=== PATIENT | female | born 1960 | race Caucasian/White ===

== ENCOUNTER → 2017-11-21 | Day surgery (SDC) | payer OTHER ==
[~2017-11-21] VITALS: Ht 167.6 cm; Wt 70.3 kg
[~2017-11-21] MED LIST: AZELASTINE137 MCG/0. NS; BIOTIN1000 MCG PO; CALCIUM 500 +1 EAC5 PO; CALCIUM CITRAT250 MG PO; CENTRUM SILVER1 EAC4 PO; ESTRADIOL 1 MG T1 M1 PO; FISH OIL 1,001000 M2 PO; FLONASE 0.05%50 MCG NASAL; GLUCOSAMINE CH1 EAC2 PO; IBUPROFEN 200200 M1 PO; LEVSIN0.125 MG PO; PROTONIX40 M4 PO; PROVERA2.5 MG PO; VITAMIN B-12500 MCG PO; VITAMIN D1000 UNI1 PO; VITAMIN E400 UNIT PO; VITAMINC500 PO
--- NOTE | ~2017-11-21 | O ---
[facility] [place] [address] OPERATIVE REPORT Name: COLLEEN ROGERS Room #: REG [facility]..#: [id number] Admission: 11/21/17 Attend Phys: Kacey Marshall, Discharge: Date of : 62 Report #: [id number] THIS REPORT FOR: //name// CC: Leticia Marshall DATE OF SERVICE: 11/21/2017 PREOPERATIVE DIAGNOSIS: Left carpal tunnel syndrome. POSTOPERATIVE DIAGNOSIS: Left carpal tunnel syndrome. PROCEDURE PERFORMED: Left open carpal tunnel release. SURGEON: Kacey Marshall MD ANESTHESIA: Local MAC anesthesia. ESTIMATED BLOOD LOSS: Minimal. TOURNIQUET TIME: 11 minutes. COMPLICATIONS: None. CONDITION: Stable. DISPOSITION: Recovery room. INDICATIONS: The patient is a 57-year-old female with the above-mentioned diagnosis. She elects for operative treatment. The risks, benefits, alternatives and complications were discussed and included but were not limited to infection, damage to blood vessels or nerves, incomplete relief of her symptoms. Informed consent was obtained. The correct extremity was identified and labeled by myself after verbal confirmation of patient as well as visual confirmation and signed informed consent. DESCRIPTION OF PROCEDURE: The patient was brought back to the operating room and placed on the operating table in the supine position. She received preoperative antibiotics. Tourniquet was placed over padding on the patient's left upper extremity. The left upper extremity was sterilely prepped and draped in the usual fashion. A final timeout was taken to verify correct patient, operative procedure and operative site, all concurred. After adequate sedation was achieved, approximately 5 mL of a mixture of 0.25% Marcaine and 1% lidocaine was injected subcutaneously at the proposed incision site. The arm was elevated, exsanguinated, and tourniquet inflated. The entire procedure was done with the aid of 3.5 times loupe magnification. Next, a 2 cm incision was made [address] [address] OPERATIVE REPORT Name: COLLEEN ROGERS Room #: REG [facility].#: [id number] Admission: 11/21/17 Attend Phys: Kacey Marshall, Discharge: Date of : 62 Report #: [id number] over the carpal tunnel in line with the ring and long finger web space. Dissection was carried down through subcutaneous tissue with tenotomy scissors. In the mid portion of the incision, a 15 blade was used to incise the very thick transverse carpal ligament. The very thick transverse carpal ligament was transected proximally from the antebrachial fascia of the forearm, all the way through the fat in the palm. The nerve was evaluated and looked to be in good condition. The wound was thoroughly irrigated. The skin was closed with 4-0 nylon suture. Wound was dressed with Adaptic and sterile gauze. She was placed in a bulky dressing. All fingers were pink with brisk capillary refill at the conclusion of the case. After deflation of the tourniquet, all sponge and needle counts were correct. The patient was transferred to postoperative recovery room in stable condition. By: 1502 1550 Kacey Marshall MD /nt
[2017-11-21 09:51] VITALS: BP 107/67
[2017-11-21 12:18] VITALS: BP 107/67
== END | disposition home or self-care (01) ==
LOC: OR 06:31
DX: G56.02 Carpal tunnel syndrome, left upper limb (principal); K21.9 Gastro-esophageal reflux disease without esophagitis; Z98.890 Other specified postprocedural states
CPT/HCPCS: 50010; 50101; 50386; 56526; 57006; 57091; 62110; 62850; 70005

== ENCOUNTER 2018-12-15 05:42 | Day surgery (SDC) | payer OTHER ==
[~2018-12-15] VITALS: Ht 165.1 cm; Wt 69.4 kg
--- NOTE | ~2018-12-15 | O ---
[facility] [place] [address] OPERATIVE REPORT Name: COLLEEN ROGERS Room #: 150-1 [facility] M.R.#: [id number] Admission: 12/15/18 ������������������ Attend Phys: Kacey Marshall, Discharge: ������������������ Date of : 62 Report #: [id number] THIS REPORT FOR: //name// CC: Leticia Marshall DATE OF SERVICE: 12/15/2018 PREOPERATIVE DIAGNOSES: 1. Right de Quervain's tenosynovitis. 2. Right long finger trigger finger. 3. Left trigger thumb. POSTOPERATIVE DIAGNOSES: 1. Right de Quervain's tenosynovitis. 2. Right long finger trigger finger. 3. Left trigger thumb. PROCEDURE PERFORMED: 1. Right first dorsal compartment release. 2. Right long finger A1 gina release. 3. Left trigger thumb A1 gina release. SURGEON: Kacey Marshall MD. ANESTHESIA: Local MAC anesthesia. ESTIMATED BLOOD LOSS: Minimal. TOURNIQUET TIME: 19 minutes on the right and 6 minutes on the left. COMPLICATIONS: None. CONDITION: Stable. DISPOSITION: Recovery room. INDICATIONS: The patient is a 58-year-old female with the above-mentioned diagnosis. She elects for operative treatment. The risks, benefits, alternatives and complications were discussed including but not limited to infection, damage to vessels or nerves, incomplete relief of her symptoms. Informed consent was obtained. The correct extremity was identified and labeled by myself after verbal confirmation of the patient as well as visual confirmation and signed informed consent. DESCRIPTION OF PROCEDURE: The patient was brought back to the operating room [facility] [address] [place] [address] OPERATIVE REPORT Name: COLLEEN ROGERS Room #: 150-1 [facility] M.R.#: [id number] Admission: 12/15/18 ������������������ Attend Phys: Kacey Marshall, Discharge: ������������������ Date of : 62 Report #: [id number] and placed on the operative room table in the supine position. She received preoperative antibiotics. Tourniquet was placed over padding on the patient's both upper extremities with her extremities were sterilely prepped and draped in usual fashion. Final timeout was taken to verify correct patient, operative procedure, operative site, all concurred. After adequate sedation was achieved, a total of 10 mL of a mixture of 0.25% Marcaine and 1% lidocaine was injected in divided doses to the proposed surgical incisions. After adequate anesthesia was obtained, the attention was placed to the left. The left upper extremity was elevated, exsanguinated and the tourniquet inflated. Next, a 1.5 cm transverse incision was made at the level of the A1 gina. Dissection was carried down through subcutaneous tissue with tenotomy scissors all the way to the A1 gina. The A1 gina was easily identified and incised. It was noted to be significantly thickened. The thumb was taken through passive range of motion. Due to the sedation, she was unable to comply with an active range of motion. There was no locking or clicking. The tendon glided smoothly. The wound was thoroughly irrigated. Skin was closed with 4-0 nylon suture. Wound was dressed with Adaptic and sterile gauze. She was placed in a bulky dressing. All fingers were pink with brisk capillary refill at the conclusion of the case after deflation of tourniquet and after application of dressing. All sponge and needle counts were correct. Next, attention was placed to the right. The right upper extremity was elevated, exsanguinated and then the tourniquet inflated. Next, approximately 1.5 cm incision was made over the long finger, over the A1 gina. Dissection was carried down through subcutaneous tissue with tenotomy scissors. The A1 gina was easily identified and incised. Mild flexor tenosynovitis was noted. This was debrided. Each tendon was brought gently through the incision to decrease any adhesion between the two tendons. The finger was taken through passive range of motion ____ tendons all glided smoothly. She was unable to cooperate with an active range of motion due to the sedation. Careful attention was placed to avoid any damage to the A2 gina. Next, attention was placed to the first dorsal compartment. A 2 cm transverse incision was made at the level of radial styloid. Dissection was carried down through subcutaneous tissue with tenotomy scissors. The dorsal aspect of the first compartment was identified and incised. There were multiple slips of the APL tendon. There was some fraying noted. The first dorsal compartment was extremely thickened. An extensive search was undertaken for the EPB tendon. No separate EPB tendon was found. It was noted that the APL tendon did move with the MP joint flexion and extension while maintaining the CMC joint in a stable position. There was no distal muscle belly noted on the APL tendon leading me to believe that the patient did not have an EPB tendon. There was no volar subluxation with wrist motion. The wounds were all thoroughly irrigated. The skin was closed with 4-0 nylon suture. Wounds were dressed with Adaptic and sterile gauze. She was placed in a bulky dressing and a volar slab splint. All fingers were pink with brisk capillary refill at the conclusion of the case [address] [address] OPERATIVE REPORT Name: COLLEEN ROGERS Room #: 150-1 [facility] M..#: [id number] Admission: 12/15/18 ������������������ Attend Phys: Kacey Marshall, Discharge: ������������������ Date of : 62 Report #: [id number] after deflation of tourniquet. All sponge and needle counts were correct. The patient was transferred to postoperative recovery room in stable condition. ��������������������������������������������� ���������������������������������������� By: ��������������������������������������������� 1212 1246 Kacey Marshall MD /nt
[2018-12-15 10:35] VITALS: BP 97/68
[2018-12-15 11:53] VITALS: BP 97/68
== END 2018-12-15 12:30 | disposition home or self-care (01) ==
LOC: OR 05:42 → TBA 05:42 → OR 12:30
DX: M65.4 Radial styloid tenosynovitis [de Quervain] (principal); M65.331 Trigger finger, right middle finger; M65.312 Trigger thumb, left thumb; K21.9 Gastro-esophageal reflux disease without esophagitis; Z98.890 Other specified postprocedural states; Z79.899 Other long term (current) drug therapy; Z87.19 Personal history of other diseases of the digestive system; Z88.6 Allergy status to analgesic agent
CPT/HCPCS: 50010; 50101; 50386; 51736; 56526; 57006; 57091; 57178; 62110; 62850; 70005

== ENCOUNTER → 2019-02-18 | Outpatient (CLI) | payer OTHER | LOC: NUC 06:41 → EDSTATUS 13:11 | DX: Z12.31 Encounter for screening mammogram for malignant neoplasm of breast (principal); M85.88 Other specified disorders of bone density and structure, other site ==

== ENCOUNTER → 2019-03-04 | Outpatient (CLI) | payer OTHER ==
[~2019-03-04] VITALS: Ht 165.1 cm; Wt 71.7 kg
--- NOTE | 2019-03-06 10:31 | P ---
[facility] [place] [address] PROCEDURE REPORT Name: COLLEEN ROGERS Room #: REG RENETTA Goldman#: [id number] Admission: 03/04/19 Attend Phys: Leonel Garrett Discharge: Date of : 62 Report #: [id number] THIS REPORT FOR: //name// CC: Leonel Nails MD DATE OF SERVICE: 03/04/2019 PROCEDURE PERFORMED: Colonoscopy with biopsies. HISTORY OF PRESENT ILLNESS: The patient is a 58-year-old female who was seen in the office on 01/27/2019 for episode of bright red blood per rectum as well as right lower quadrant, intermittent, crampy abdominal pain. She underwent an ultrasound of the pelvis as well as a [employer] exam that was reportedly normal. Last colonoscopy was 2014, history of hemorrhoidectomy years ago. No family history of colon cancer. No further episodes of bleeding. The patient was prescribed Levsin to be used p.r.n. She has not tried this as of yet. PROCEDURE: The risks and benefits of the procedure were explained to the patient, those risks including but not limited to bleeding, perforation and the risk of sedation. She understood these risks and gave informed consent. Sedation was given using propofol per anesthesia. Next, a digital rectal exam was initially performed, which was normal. Next, using a standard Olympus colonoscope, the scope was placed in the patient's anus and advanced under direct vision to the cecum. The overall prep was excellent. The cecum and ileocecal valve were normal in appearance. In the ascending colon, a 4 mm sessile polyp was noted. This was removed with cold forceps, otherwise normal. The transverse, descending and sigmoid colon were normal. The rectal mucosa was normal. On retroflexion, no abnormalities were noted. Close examination of the anal canal showed small external hemorrhoids. No evidence of bleeding. No obvious fissure. The scope was then withdrawn and the procedure terminated. The patient tolerated the procedure well. IMPRESSION: 1. Small colonic polyp. 2. Small external hemorrhoids, likely source of recent bright red blood per rectum. The patient could have had an anal fissure at that time as well, which is now healed. 3. Otherwise, normal colonoscopy. RECOMMENDATIONS: 1. Await biopsy results. 2. If polyp is hyperplastic, repeat in 10 years; if adenomatous polyp, repeat in 5 years. 3. We would observe at this time. If further bleeding, would recommend [facility] [address] [place] [address] PROCEDURE REPORT Name: COLLEEN ROGERS Room #: REG [facility] Goldman#: [id number] Admission: 03/04/19 Attend Phys: Leonel Garrett Discharge: Date of : 62 Report #: [id number] Analpram on a p.r.n. basis. As far as the patient's intermittent, crampy right lower quadrant abdominal pain, the plan is to use Levsin on a p.r.n. basis. If pain persists, consider CT scan of the abdomen and pelvis at that time. Thank you for allowing me to participate in her care. <ELECTRONICALLY SIGNED> By: Leonel Qiu MD 03/06/19 1031 0851 0015 Leonel Qiu MD /nt
--- NOTE | 2019-03-09 12:06 | PATH ---
[facility] [address] [place] [address] PATHOLOGY RPT PROCEDURE Name: COLLEEN STRICKLAND Room #: REG [facility] [place].#: [id number] Admission: 03/04/19 Date of : 62 Discharge: Report #: [id number] Path Case #: [id number] [facility] Accession Number: [id number] . 01 Material submitted: . colon - POLYP AT ASCENDING COLON. Modifiers: ascending . 01 Clinical history: . Preop DX: abd pain, rectal bleeding Postop DX: colon polyp . 02 Diagnosis: Polyp, ascending colon, endoscopic biopsy: - Tubular adenoma. - Negative for high-grade dysplasia. (IUV:cici; 03/06/2019) QMS 03/06/2019 1517 Local . 02 Electronically signed: . Haleigh Aleman MD, Pathologist NPI- [id number] . 01 Gross description: . Received in formalin labeled "Colleen Strickland, polyp at ascending colon," is a segment of boston soft tissue measuring 0.4 x 0.3 x 0.2 cm in greatest dimensions. The specimen is submitted entirely in cassette A1. (DAC; 03/05/2019) XDC/XDC 03/05/2019 1037 Local . 02 Pathologist provided ICD-10: D12.2 . 02 CPT . 525206 Specimen Comment: A courtesy copy of this report has been sent to Specimen Comment: [phone], . Specimen Comment: Report sent to / DR THOMPSON Performed at: [address], [place], [place] [id number] MD John Dorman MD Phone: [phone] Performed at: [address] [id number] MD Haleigh Aleman MD Phone: [phone]
== END | disposition home or self-care (01) ==
LOC: GI 06:51
DX: R10.31 Right lower quadrant pain (principal); D12.2 Benign neoplasm of ascending colon; K64.4 Residual hemorrhoidal skin tags; K21.9 Gastro-esophageal reflux disease without esophagitis; Z98.890 Other specified postprocedural states; Z79.899 Other long term (current) drug therapy; Z88.6 Allergy status to analgesic agent
CPT/HCPCS: 62110; 62900

== ENCOUNTER → 2019-03-09 | Outpatient (CLI) | payer OTHER | LOC: ULTRA 01:31 | DX: N63.20 Unspecified lump in the left breast, unspecified quadrant (principal) ==

== ENCOUNTER → 2019-12-04 | Outpatient (CLI) | payer OTHER ==
[~2019-12-04] MED LIST changes: +BIOTIN800 MCG PO; +CALCIUM CARBON500 MG PO; +FIBER500 MG PO; +FISH OIL 1,0001 EAC9 PO; +GLUCOSAMINE &1 EAC1 PO; +MULTIPLE VITAM1 EAC4 PO; +VITAMIN B-121000 MC3 PO; +VITAMIN C500 M1 PO; +VITAMIN D31250 MC1 PO; +VITAMIN E1000 UNIT PO
== END ==
LOC: LAB 12-03 08:02
PROVIDERS: ATTEND Otolaryngology Plastic Surgery within the Head & Neck
DX: Z01.812 Encounter for preprocedural laboratory examination (principal); Z11.59 Encounter for screening for other viral diseases

== ENCOUNTER → 2019-12-08 | Outpatient (CLI) | payer OTHER ==
--- NOTE | 2019-12-11 15:21 | SLE ---
[facility] [place] [address] POLYSOMNOGRAPHY STUDY Name: COLLEEN ROGERS Room #: REG [facility]#: [id number] Admission: 12/08/19 Attend Phys: Leonides Sotomayor MD Discharge: Date of : 62 Report #: [id number] THIS REPORT FOR: //name// CC: Leonides Wong DATE OF SERVICE: 12/08/2019 SLEEP STUDY ATTENDING PHYSICIAN: Dr. Ned Wong. The patient is 59 years old who weighs 157 pounds with a BMI of 25.7. The patient has daytime somnolence with an Omaha score of 12. As a result, a sleep study was performed at [facility]. During the night study, the patient spent 461 minutes in bed and slept for 470 minutes with a sleep efficiency of 88%. Sleep latency was 8.5 minutes with a REM latency of 165 minutes. Sleep architecture showed normal stage 1 sleep, increased stage 2 sleep, normal slow wave and normal REM sleep. During the night study, the patient had no apneas. There was 1 hypopnea. The patient's AHI was only 0.1 per hour. EKG monitoring revealed an average heart rate of 49 beats per minute. No sustained arrhythmias observed. Occasional PACs seen. No clinically significant PLM seen. Nocturnal oximetry study revealed an average oxygen saturation of 98% with a lowest of 92%. Due to low AHI, the patient did not meet the split night criteria for CPAP initiation. IMPRESSION: 1. No clinically significant sleep disorder breathing. The patient's AHI for the entire night was only 0.1 per hour. 2. No clinically significant nocturnal hypoxia. 3. No evidence of PLMs. 4. The patient had normal sleep efficiency of 88%. RECOMMENDATIONS: 1. The patient did not meet the split night criteria for CPAP initiation due to very low AHI. [facility] [address] [place] [address] POLYSOMNOGRAPHY STUDY Name: COLLEEN ROGERS Room #: REG [facility]#: [id number] Admission: 12/08/19 Attend Phys: Leonides Sotomayor MD Discharge: Date of : 62 Report #: [id number] 2. The patient has subjective hypersomnia with an Omaha score of 12. Sleep study did not show any significant sleep disorder breathing. The patient's sleep efficiency was normal at 88% and the patient is not on any sedative medications. Consider ruling out other etiologies such as narcolepsy and consider doing an MSLT if clinically indicated. 3. Avoid [employer] depressants. 4. Cautioned regarding driving until the patient's hypersomnia is resolved. <ELECTRONICALLY SIGNED> By: Leonides Sotomayor MD 12/11/19 1521 2200 2216 Leonides Sotomayor MD /nt
== END ==
LOC: SLEEPLAB 15:37
PROVIDERS: ATTEND Internal Medicine Critical Care Medicine
DX: G47.34 Idiopathic sleep related nonobstructive alveolar hypoventilation (principal); R53.83 Other fatigue; R06.83 Snoring; G47.19 Other hypersomnia; K13.79 Other lesions of oral mucosa

== ENCOUNTER → 2019-12-09 | Outpatient (CLI) | payer OTHER ==
[~2019-12-09] VITALS: Ht 167.6 cm; Wt 71.2 kg
--- NOTE | 2019-12-11 10:10 | P ---
[facility] [place] [address] PROCEDURE REPORT Name: COLLEEN ROGERS Room #: REG [facility] Goldman#: [id number] Admission: 12/09/19 Attend Phys: Leonel Garrett Discharge: Date of : 62 Report #: [id number] THIS REPORT FOR: cc: Ned Wong MD, Mark S. MD McElhinney, Christian C. MD ~ CC: Leonel Coulter MD DATE OF SERVICE: 12/09/2019 PROCEDURE PERFORMED: Upper endoscopy with biopsies and esophageal dilation. HISTORY OF PRESENT ILLNESS: The patient is a 59-year-old female with a long history of gastroesophageal reflux disease, up until recently was taking Protonix 40 mg apparently b.i.d. She has now decreased this to once a day, still under good control. She does report some mild dysphagia at times. Plan is for upper endoscopy. DESCRIPTION OF PROCEDURE: The risks and benefits of the procedure were explained to the patient, those risks including but not limited to bleeding, perforation and the risk of sedation. She understood these risks and gave informed consent. Sedation was given using propofol per anesthesia. Next, using a standard Olympus upper endoscope, the scope was placed in the patient's mouth and advanced under direct vision through the esophagus, stomach and into the second portion of the duodenum. The larynx was normal in appearance. The esophagus was normal throughout. The GE junction was normal. No evidence of esophagitis or stricture. Overall, the gastric mucosa was normal other than a few small gastric polyps, biopsies were obtained. The gastric antrum was normal. The pylorus was normal and patent. The duodenal bulb, first and second portion were all normal. The scope was then brought back up into the patient's stomach and a Savary guidewire was inserted through the scope, leaving the guidewire in place as the scope was then withdrawn. Next, a 51-Albanian Savary dilation of the esophagus was then performed without difficulty. The wire and dilator were removed. The scope was reintroduced into the patient's stomach. There was no evidence of mucosal tear after dilation. The scope was then withdrawn and the procedure terminated. The patient tolerated the procedure well. IMPRESSION: 1. Small gastric polyps. 2. Otherwise, normal upper endoscopy. [address] [address] PROCEDURE REPORT Name: SUECOLLEEN Room #: REG Sandy Goldman#: [id number] Admission: 12/09/19 Attend Phys: Leonel Garrett Discharge: Date of : 62 Report #: [id number] RECOMMENDATIONS: 1. Await biopsy results. 2. Observe the patient post dilation. 3. Continue daily PPI therapy as long as this is controlling her symptoms. Thank you for allowing me to participate in her care. <ELECTRONICALLY SIGNED> By: Leonel Qiu MD 12/11/19 1010 0924 1209 Leonel Qiu MD /jhon
--- NOTE | 2019-12-11 17:08 | PATH ---
[facility] [address] [place] [address] PATHOLOGY RPT PROCEDURE Name: COLLEEN ROGERS Room #: REG RENETTA Moffett.#: [id number] Admission: 12/09/19 Date of : 62 Discharge: Report #: [id number] Path Case #: [id number] [facility] Accession Number: [id number] . 01 Material submitted: . stomach - GASTRIC POLYP . 01 Clinical history: . Reflux, Covid . 02 Diagnosis: Polyp, gastric polyp, endoscopic biopsy: - Fundic gland polyp. - Negative for dysplasia. 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 02 Electronically signed: . Haleigh Aleman MD, Pathologist NPI- [id number] . 01 Gross description: . The specimen is received in formalin, labeled "Colleen Em, gastric polyp". Received are two segments of pale boston soft tissue ranging in size from 0.5 to 0.6 cm in maximum dimensions. The specimen is submitted entirely in cassette A1. The specimen is held in formalin for 24 hours prior to microtomy. (CAA; 12/09/2019) QAC/QAC 12/09/2019 1717 Local . 02 Pathologist provided ICD-10: K31.7 . 02 CPT . 564072 Specimen Comment: A courtesy copy of this report has been sent to [phone] Specimen Comment: [phone], Specimen Comment: Report sent to ,DR JACOBS / DR CAMPA Performed at: [address], [place] [id number] MD John Dorman MD Phone: [phone] Performed at: [address] [id number] MD Haleigh Aleman MD Phone: [phone]
== END | disposition home or self-care (01) ==
LOC: GI 07:21
PROVIDERS: ATTEND Specialist
DX: K31.7 Polyp of stomach and duodenum (principal); K21.9 Gastro-esophageal reflux disease without esophagitis; R13.10 Dysphagia, unspecified; Z98.890 Other specified postprocedural states; Z79.899 Other long term (current) drug therapy; Z88.8 Allergy status to other drugs, medicaments and biological substances
CPT/HCPCS: 62110; 62900

== ENCOUNTER → 2019-12-22 | Outpatient (CLI) | payer OTHER | LOC: LAB 15:14 | PROVIDERS: ATTEND Otolaryngology Plastic Surgery within the Head & Neck | DX: K21.9 Gastro-esophageal reflux disease without esophagitis (principal); R09.89 Other specified symptoms and signs involving the circulatory and respiratory systems; J30.2 Other seasonal allergic rhinitis; G47.19 Other hypersomnia; K13.79 Other lesions of oral mucosa; R06.83 Snoring; R53.83 Other fatigue; G47.34 Idiopathic sleep related nonobstructive alveolar hypoventilation ==

== ENCOUNTER → 2020-03-15 | Outpatient (CLI) | payer OTHER | LOC: BC 08:19 | PROVIDERS: ATTEND Specialist | DX: Z12.31 Encounter for screening mammogram for malignant neoplasm of breast (principal) ==

== ENCOUNTER → 2021-03-15 | Outpatient (CLI) | payer OTHER | LOC: BC 08:22 | PROVIDERS: ATTEND Specialist | DX: Z12.31 Encounter for screening mammogram for malignant neoplasm of breast (principal); N64.89 Other specified disorders of breast ==